=== PATIENT | female | born 1965 | race African-American/Black ===

== ENCOUNTER 2018-12-16 03:23 | Emergency (ER) | payer OTHER ==
[~2018-12-16] VITALS: Ht 162.6 cm; Wt 87.1 kg
[2018-12-16 03:23] VITALS: BP 140/117
[2018-12-16] MEDS ORDERED: ORPH100T PO (04:12)
[2018-12-16] MEDS ORDERED: NAPR-695 PO (04:12)
[2018-12-16] MEDS ORDERED: NEOM10DR32 RIGHT EAR (04:12)
--- NOTE | 2018-12-16 04:12 | PHYS DOC ---
Past Medical History Past Medical History: Bipolar, Diabetes-Type II, Hypertension, Seizure Past Surgical History: Tubal ligation Smoking: Less than 1pk/day Alcohol Use: Heavy Drug Use: Cocaine Adult General Chief Complaint Chief Complaint: LOWER EXT PAIN HPI HPI Patient is a 53 year old female who presents with right leg pain for the past two days. Patient states that the pain became worse tonight and she was having trouble sleeping prompting her to come to the ED for evaluation. Patient states that the pain starts in her right hip and radiates all the way down her right leg. Patient states that the pain is worse with standing. Patient reports numbness, tingling, and weakness in her right leg. Patient describes the pain as a constant throbbing sensation and rates it to be 10/10. Patient denies sustaining any trauma. Patient denies a personal or family history of blood clots. Patient denies any alleviating factors. Patient did not take any medication at home for the pain. Review of Systems Review of Systems Constitutional: Denies fever or chills Eyes: Denies change in visual acuity or eye pain HENT: Denies nasal congestion or sore throat Respiratory: Denies cough or shortness of breath Cardiovascular: Denies chest pain or palpitations GI: Denies abdominal pain, nausea, vomiting, or diarrhea : Denies dysuria or hematuria Musculoskeletal: Denies back pain or joint pain Integument: Denies rash or skin lesion Neurologic: Denies headache. Denies upper extremity weakness. Complete systems were reviewed and found to be within normal limits, except as documented in this note. Current Medications Current Medications Current Medications Medications (Trade) Dose Ordered Sig/[facility] Start Time Stop Time Status Last Admin Dose Admin Cyclobenzaprine HCl (Flexeril) 10 mg 1X ONCE 12/16/18 04:15 12/16/18 04:16 DC 12/16/18 04:24 10 MG Dexamethasone (Decadron) 4 mg STK-MED ONCE 12/16/18 04:19 12/16/18 04:20 DC Ketorolac Tromethamine (Toradol 30mg Vial) 30 mg 1X ONCE 12/16/18 04:15 12/16/18 04:16 DC 12/16/18 04:24 30 MG Allergies Allergies Allergies Coded Allergies Type Severity Reaction Last Updated Verified aspirin Allergy Intermediate 12/16/18 Yes Physical Exam Physical Exam Constitutional: Well developed, well nourished, no acute distress. HENT: Normocephalic, atraumatic, wax noted in the right ear canal with a possible foreign body that appears to have insect like features, oropharynx moist, no oral exudates, nose normal. [] Eyes: PERRL, EOMI, conjunctiva normal, no discharge Neck: Normal range of motion, no tenderness, supple. Cardiovascular: Heart rate regular rhythm, no murmur. Lungs & Thorax: Bilateral breath sounds clear to auscultation Abdomen: Soft, no tenderness. Skin: Warm, dry. Back: No tenderness, no CVA tenderness. Extremities: Subjective tenderness of right lower extremity on range of motion and on palpation, ROM intact, no edema. Neurologic: Alert and oriented X3, normal motor function, subjective decreased sensation of right lower extremity, no focal deficits noted. Psychologic: Affect normal. Normal speech. Current Patient Data Vital Signs Vital Signs Date Time Temp Pulse Resp B/P (MAP) Pulse Ox O2 Delivery O2 Flow Rate FiO2 12/16/18 03:23 98.1 87 18 140/117 (125) 97 Room Air 98.1 EKG EKG [] Radiology/Procedures Radiology/Procedures [] Course & Med Decision Making Course & Med Decision Making Patient is a 53 year old female who presents to the ED for evaluation of right lower extremity pain. Physical examination findings are concerning for sciatica. No history of trauma. No midline spinal tenderness. Patient denies loss of bladder or bowel continence. No fever. Symptomatic treatment initiated with improvement on repeat exam. Patient noted to have significant ear wax of right ear with possible foreign body concerning for non viable insect. Ear irrigation performed with 50/50 mix of hydrogen peroxide and warm water x 500mL. Unfortunately, irrigation unsuccessful for removal as patient unable to tolerate further irrigation. Some external ear canal irritation noted on repeat exam therefore prescription for antibiotic ear drops provided. Patient stable for discharge with outpatient follow-up with PCP. Patient provided with ENT referral. Discussed findings and plan with patient and family , who acknowledge understanding and agreement. Dragon Disclaimer Dragon Disclaimer This electronic medical record was generated, in whole or in part, using a voice recognition dictation system. Departure Departure Impression: Primary Impression: Sciatica Additional Impression: Foreign body of ear, right Disposition: HOME, SELF-CARE Condition: STABLE Referrals: SKYLA FORD MD, BRIAN N MD Patient Instructions: Ear Foreign Body, [id number], Sciatica, [id number] Additional Instructions: We attempted to remove ear wax with possible retained foreign body to right ear (insect). We were unsuccessful. Please follow with an ENT (see attached). Scripts Neomycin/Polymyxin B Sulf/Hc ([id number]-EU EAR SUSP) 10 Ml Drops.susp 3 DROP RIGHT EAR TID, #10 ML Prov: KELSEY RIVAS DO 12/16/18 Naproxen (NAPROXEN) 375 Mg Tablet 1 TAB PO BID PRN for PAIN, #20 TAB 0 Refills Prov: KELSEY RIVAS DO 12/16/18 Orphenadrine Citrate (ORPHENADRINE CITRATE) 100 Mg Tablet.er 100 MG PO BID PRN for MUSCLE PAIN, #14 Prov: KELSEY RIVAS DO 12/16/18 Additional Procedures Progress Time out performed. Verbal consent obtained. Right ear irrigation utilized for attempted removal fo foreign body and excessive ear wax. Utilization of 50/50 mix of warm water and hydrogen peroxide x 500mL performed via 18 gauge angiocath and 60cc syringe. Patient became intolerant of further irrigation and therefore, procedure was terminated prior to successful removal of foreign object. Problem Qualifiers Primary Impression: Sciatica Laterality: left Qualified Codes: M54.32 - Sciatica, left side Additional Impression: Foreign body of ear, right Encounter type: initial encounter Qualified Codes: T16.1XXA - Foreign body in right ear, initial encounter KELSEY RIVAS DO Dec 16, 2018 04:12
[2018-12-16] MEDS ORDERED: CYCLOBENZAPRINE 10 MG TABLET. PO ONE (04:15)
[2018-12-16] MEDS ORDERED: DEXAMETHASONE 4 MG TABLET PO ONE (04:15)
[2018-12-16] MEDS ORDERED: KETOROLAC 30 MG/ML VIAL. IM ONE (04:15)
[2018-12-16] MEDS ORDERED: DEXAMETHASONE 4 MG TABLET ONE (04:19)
== END 2018-12-16 04:55 | disposition home or self-care (01) ==
LOC: ER 03:23
DX: T16.1XXA Foreign body in right ear, initial encounter (principal); M54.31 Sciatica, right side; E11.9 Type 2 diabetes mellitus without complications; I10 Essential (primary) hypertension; F31.9 Bipolar disorder, unspecified; F10.20 Alcohol dependence, uncomplicated; Z98.51 Tubal ligation status; Z88.6 Allergy status to analgesic agent; X58.XXXA Exposure to other specified factors, initial encounter; Y93.89 Activity, other specified; Y92.89 Other specified places as the place of occurrence of the external cause; Y99.8 Other external cause status
CPT/HCPCS: 69209; 96372; 99284; J1885; J8540; 99283